=== PATIENT | female | born 1990 | race African-American/Black ===

== ENCOUNTER 2017-02-09 09:34 | Emergency (ER) | payer OTHER ==
[2017-02-09 09:48] VITALS: BP 134/80; PULSE 71; TEMP 98.8; BMI 32.8
--- NOTE | 2017-02-09 12:05 | PDOC ---
History of Present Illness - General History Source: Patient Exam Limitations: No Limitations - History of Present Illness Initial Comments: CHIEF COMPLAINT: 26 y/o afebrile female with PMH asthma c/o SOB since PCP smoking cessation 2 months ago. HISTORY OF PRESENT ILLNESS: The patient states she smoked PCP every day from the time she was 15 until 2 months ago (11 years total). She states since she quit 2 months ago she has had shortness of breath and has not felt like herself. She also admits to yellow vaginal discharge for the past 2 weeks and would like to be tested and treated for STDs. She denies f/c, n/v/d, cough, runny nose, CP, wheezing, abd pain, back pain, hematuria, dysuria, white vaginal discharge, vaginal itching, foul vaginal odor. Vital signs on arrival are within normal limits. REVIEW OF SYSTEMS: GENERAL/CONSTITUTIONAL: No fever/chills. No weakness. No weight change. HEAD, EYES, EARS, NOSE AND THROAT: No change in vision. No ear pain or discharge. No sore throat. CARDIOVASCULAR: +SOB. No chest pain. RESPIRATORY: No cough, wheezing, or hemoptysis. GASTROINTESTINAL: No abd pain, nausea, vomiting, diarrhea. GENITOURINARY: No dysuria, frequency, or change in urination. +yellow vaginal discharge. MUSCULOSKELETAL: No joint or muscle swelling or pain. No neck or back pain. SKIN: No rash or easy bruising. NEUROLOGIC: No headache, vertigo, loss of consciousness, or loss of sensation. PHYSICAL EXAM: GENERAL: The patient is awake, alert, and fully oriented, in no acute distress. She is well appearing and ambulatory. HEAD: Normal with no signs of trauma. ENT: Pupils equal, round and reactive to light, extraocular movements intact, sclera anicteric, conjunctiva clear. Neck supple. LUNGS: Clear to auscultation bilaterally. Normal excursion. No respiratory distress or use of accessory muscles. No wheezing, rhonchi, rales or crackles. CV: RRR, S1/S2, no MRG. Cap refill < 2 sec. ABDOMEN: Soft, non-distended, non-tender even to deep palpation, no hepatomegaly or splenomegaly, no masses. VAGINAL: DEFERRED EXTREMITIES: Normal range of motion, no edema. NEUROLOGICAL: Normal speech, normal gait. CN II-XII grossly intact. PSYCH: Normal mood, normal affect. SKIN: Warm, dry, normal turgor, no rashes or lesions noted. <Kaleigh Rogers - Last Filed: 02/09/17 14:15> <Anitra Bernard - Last Filed: 02/09/17 14:28> - General Chief Complaint: Weakness Stated Complaint: WEAKNESS Time Seen by Provider: 02/09/17 11:42 Past History - Past Medical History Asthma: Yes Psychiatric Problems: Yes (DEPRESSION, ANXIETY) - Reproductive History Spontaneous : 1 - Psycho/Social/Smoking Cessation Hx Anxiety: No Suicidal Ideation: No Smoking Status: Yes Smoking History: Current every day smoker Have you smoked in the past 12 months: Yes Number of Cigarettes Smoked Daily: 10 Cigars Per Day: 0 Information on smoking cessation initiated: No Drug/Substance Use Hx: Yes (PCP 1 MONTH AGO) <Kaleigh Rogers - Last Filed: 02/09/17 14:15> <Anitra Bernard - Last Filed: 02/09/17 14:28> - Past Medical History Allergies/Adverse Reactions: Allergies Allergy/AdvReac Type Severity Reaction Status Date / Time No Known Allergies Allergy Verified 02/09/17 09:43 Home Medications: Ambulatory Orders Escitalopram Oxalate [Lexapro -] 20 mg PO DAILY 02/09/17 *Physical Exam - Vital Signs Last Vital Signs Temp Pulse Resp BP Pulse Ox 98.8 F 71 19 134/80 100 02/09/17 09:44 02/09/17 09:44 02/09/17 09:44 02/09/17 09:44 02/09/17 09:44 <Kaleigh Rogers - Last Filed: 02/09/17 14:15> - Vital Signs Last Vital Signs Temp Pulse Resp BP Pulse Ox 98.8 F 71 19 134/80 100 02/09/17 09:44 02/09/17 09:44 02/09/17 09:44 02/09/17 09:44 02/09/17 09:44 <Anitra Bernard - Last Filed: 02/09/17 14:28> ED Treatment Course - ADDITIONAL ORDERS Additional order review: Laboratory Results 02/09/17 12:12 Urine Color Straw Urine Appearance Clear Urine pH 7.0 Urine Protein Negative Urine Glucose (UA) Negative Urine Ketones Negative Urine Blood Negative Urine Nitrite Negative Urine Bilirubin Negative Urine Urobilinogen Negative Ur Leukocyte Esterase Negative Urine HCG, Qual Negative - Medications Given in the ED: ED Medications Discontinued Medications Generic Name Dose Route Start Last Admin Trade Name Piotr PRN Reason Stop Dose Admin Azithromycin 1 gm 02/09/17 13:12 02/09/17 14:17 Zithromax - PO 02/09/17 13:13 1 gm ONCE ONE Administration Ceftriaxone Sodium 500 mg 02/09/17 13:12 02/09/17 14:17 Rocephin - IM 02/09/17 13:13 500 mg ONCE ONE Administration <Anitra Bernard - Last Filed: 02/09/17 14:28> Medical Decision Making - Medical Decision Making A/P: 26 y/o afebrile female with SOB for the past 2 months since she stopped smoking PCP. She is also c/o vaginal discharge and is concerned for STDs. Plan is as follows: 1. UA/culture/hcg 2. GC/chlamydia 3. CXR 4. PO azithro 5. IM ceftriaxone CXR IMPRESSION: (wet read) No acute pathology. Will treat empirically for GC/Chlamydia. Instructed her to avoid sexual intercourse for 1 week and inform all sexual partners they should be treated. informed her of her CXR results and suggested she f/u with her PCP, Dr. José Miguel Kirby, within 1 week. 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 Instructed her to return to the ER with any worsening or concerning symptoms. The patient verbalizes understanding of all instructions, has no further questions and is awaiting discharge. <Kaleigh Rogers - Last Filed: 02/09/17 14:15> *DC/Admit/Observation/Transfer <Kaleigh Rogers - Last Filed: 02/09/17 14:15> <Anitra Bernard - Last Filed: 02/09/17 14:28> Diagnosis at time of Disposition: Shortness of breath, Concern about STD in female without diagnosis - Discharge Dispostion Disposition: HOME Condition at time of disposition: Good - Referrals Referrals: Callie Finn MD [Primary Care Provider] - - Patient Instructions Printed Discharge Instructions: DI for Shortness of Breath, Facts About Sexually Transmitted Infections Additional Instructions: Discharge Instructions: -You were treated for gonorrhea and chlamydia today with IM Ceftriaxone and PO Azithro. No further treatment is necessary -Please do not have sexual intercourse for 1 week -Inform all sexual partners they should be tested for GC/chlamydia -Return to the ER with any worsening or concerning symptoms
[2017-02-09 13:04] LABS: URINE APPEARANCE CLEAR; URINE BILIRUBIN NEGATIVE (NEGATIVE); URINE BLOOD NEGATIVE (NEGATIVE); URINE COLOR STRAW; URINE GLUCOSE (UA) NEGATIVE (NEGATIVE); URINE KETONE NEGATIVE (NEGATIVE); URINE LEUK ESTERASE NEGATIVE (NEGATIVE); URINE NITRITE NEGATIVE (NEGATIVE); URINE PROTEIN NEGATIVE (NEGATIVE); URINE UROBILINOGEN NEGATIVE E.U./dl (0.2-1.0)
[2017-02-09] MEDS ORDERED: AZITHROMYCIN 1 GM PACKET PO ONE (13:12)
[2017-02-09] MEDS ORDERED: AZITHROMYCIN 250 MG TABLET (FP) ONE (14:10)
[2017-02-09] MEDS ORDERED: cefTRIAXone SODIUM 1 GM VIAL ONE (14:12)
== END 2017-02-09 14:28 | disposition home or self-care (01) ==
LOC: JER 09:34
DX: R06.02 Shortness of breath (principal); F16.10 Hallucinogen abuse, uncomplicated; Z11.3 Encounter for screening for infections with a predominantly sexual mode of transmission; J45.909 Unspecified asthma, uncomplicated
CPT/HCPCS: 36415; 71020-TC; 81003; 84703; 87086; 87491; 87591; 96372; 99282-25

== ENCOUNTER 2021-08-08 09:39 | Inpatient (IN) | payer OTHER ==
[2021-08-08 10:20] VITALS: BMI 32.8
[2021-08-08] MEDS ORDERED: guaiFENesin 200 MG/10 ML 10 ML UNIT-DOSE CUPS PO PRN (10:25)
[2021-08-08] MEDS ORDERED: LOPERAMIDE HCL 2 MG CAPSULE PO PRN (10:25)
[2021-08-08] MEDS ORDERED: MAG HYDROX/AL HYDROX/SIMETH 30 ML UNIT-DOSE CUP PO PRN (10:25)
[2021-08-08] MEDS ORDERED: MAGNESIUM HYDROX 2400MG/30ML ORAL SUSPENSION 30 ML CUP PO PRN (10:25)
[2021-08-08] MEDS ORDERED: ACETAMINOPHEN 325 MG TABLET (FP) PO PRN (10:25)
[2021-08-08] MEDS ORDERED: MAGNESIUM CITRATE 300 ML BOTTLE PO PRN (10:25)
[2021-08-08] MEDS ORDERED: P-EPHED 60MG/TRIPROLIDI 2.5MG TABLET PO PRN (10:25)
[2021-08-08] MEDS ORDERED: IBUPROFEN 400 MG TABLET (FP) PO PRN (10:25)
[2021-08-08] MEDS ORDERED: ALBUTEROL SO4 HFA INHALER IH PRN (10:26)
[2021-08-08] MEDS: NICOTINE 7 MG/24 HOURS TOPICAL PATCH TD SCH (13:23)
[2021-08-08] MEDS: hydrOXYzine PAMOATE 25 MG CAPSULE (FP) PO SCH ×3 (13:24→21:13)
[2021-08-08] MEDS ORDERED: TUBERCULIN PPD 5 TU/0.1ML VIAL ID ONE (13:28)
[2021-08-08] MEDS: PRENATAL VITAMINS W/ FOLIC ACID TABLET (FP) PO SCH (13:30)
[2021-08-08] MEDS: ACAMPROSATE CALCIUM 333 MG TABLET.DR PO SCH ×2 (13:30→21:12)
[2021-08-08 17:13] LABS: BLOOD UREA NITROGEN 7.9 mg/dL (7-18)
[2021-08-08 17:14] LABS: CALCIUM 9.1 mg/dL (8.5-10.1)
[2021-08-08 17:15] LABS: ALBUMIN 3.7 g/dl (3.4-5.0)
[2021-08-08 17:18] LABS: CREATININE 0.8 mg/dL (0.55-1.3)
[2021-08-08 17:19] LABS: BILIRUBIN,TOTAL 0.6 mg/dL (0.2-1); TOT PROT 7.1 g/dl (6.4-8.2)
[2021-08-08 17:22] LABS: MCH 29.1 pg (25.7-33.7); MCHC 32.6 g/dl (32.0-36.0); MEAN CELL VOLUME 89.1 fl (80-96); MEAN PLT VOLUME 8.7 fl (7.5-11.1); PLATELET COUNT 271 10^3/uL (134-434); RBC 5.16 M/mm3 (3.60-5.2); RDW 14.8 % (11.6-15.6); WHITE BLOOD COUNT 13.9 K/mm3 (4.0-10.0)
[2021-08-08 17:37] LABS: SYPHILIS W/ RPR CONF NON-REACTIVE (NONREACTIVE)
[2021-08-08] MEDS: MELATONIN 5 MG TABLETS PO SCH (21:12)
[2021-08-08] MEDS: THIAMINE HCL 100 MG TABLET (FP) PO SCH (21:12)
[2021-08-08] MEDS: NICOTINE 10 MG CARTRIDGE (INHALER) IH PRN (21:14)
[2021-08-09] MEDS ORDERED: PT OWN MED DRAWER 7, Y5N ONE ×2 (06:18→10:27)
[2021-08-09] MEDS: hydrOXYzine PAMOATE 25 MG CAPSULE (FP) PO SCH ×5 (06:19→21:08)
[2021-08-09] MEDS: ACAMPROSATE CALCIUM 333 MG TABLET.DR PO SCH ×3 (06:19→22:27)
[2021-08-09] MEDS ORDERED: BENZOCAINE/MENTHOL 1 EACH LOZENGE MM PRN (09:45)
[2021-08-09] MEDS: NICOTINE 7 MG/24 HOURS TOPICAL PATCH TD SCH (10:19)
[2021-08-09] MEDS: PRENATAL VITAMINS W/ FOLIC ACID TABLET (FP) PO SCH (10:19)
[2021-08-09] MEDS: NICOTINE 10 MG CARTRIDGE (INHALER) IH PRN (10:21)
[2021-08-09] MEDS: THIAMINE HCL 100 MG TABLET (FP) PO SCH (21:08)
[2021-08-09] MEDS: MELATONIN 5 MG TABLETS PO SCH (21:08)
[2021-08-10] MEDS: ACAMPROSATE CALCIUM 333 MG TABLET.DR PO SCH ×3 (06:42→21:53)
[2021-08-10] MEDS: hydrOXYzine PAMOATE 25 MG CAPSULE (FP) PO SCH ×5 (06:42→21:53)
[2021-08-10 10:02] LABS: PH,URINE 7.5 (5.0-8.0); URINE APPEARANCE CLEAR; URINE BILIRUBIN NEGATIVE (NEGATIVE); URINE COLOR YELLOW; URINE GLUCOSE (UA) NEGATIVE (NEGATIVE); URINE KETONE NEGATIVE (NEGATIVE); URINE LEUK ESTERASE NEGATIVE (NEGATIVE); URINE NITRITE NEGATIVE (NEGATIVE); URINE PROTEIN NEGATIVE (NEGATIVE); URINE UROBILINOGEN 0.2 mg/dL (0.2-1.0)
[2021-08-10] MEDS: PRENATAL VITAMINS W/ FOLIC ACID TABLET (FP) PO SCH (10:20)
[2021-08-10] MEDS: NICOTINE 7 MG/24 HOURS TOPICAL PATCH TD SCH (10:20)
[2021-08-10] MEDS ORDERED: PT OWN MED DRAWER 7, Y5N ONE (13:47)
[2021-08-10] MEDS: THIAMINE HCL 100 MG TABLET (FP) PO SCH (21:53)
[2021-08-10] MEDS: MELATONIN 5 MG TABLETS PO SCH (21:53)
[2021-08-11] MEDS: hydrOXYzine PAMOATE 25 MG CAPSULE (FP) PO SCH ×5 (06:44→21:17)
[2021-08-11] MEDS: ACAMPROSATE CALCIUM 333 MG TABLET.DR PO SCH ×3 (06:44→21:17)
[2021-08-11] MEDS: PRENATAL VITAMINS W/ FOLIC ACID TABLET (FP) PO SCH (10:31)
[2021-08-11] MEDS: NICOTINE 7 MG/24 HOURS TOPICAL PATCH TD SCH (10:32)
[2021-08-11] MEDS: MENTHOL/PHENOL 1 EACH UD MM PRN ×2 (13:59→21:18)
[2021-08-11] MEDS: THIAMINE HCL 100 MG TABLET (FP) PO SCH (21:17)
[2021-08-11] MEDS: MELATONIN 5 MG TABLETS PO SCH (21:18)
[2021-08-12] MEDS ORDERED: PT OWN MED DRAWER 7, Y5N ONE ×2 (04:01→13:13)
[2021-08-12] MEDS: MENTHOL/PHENOL 1 EACH UD MM PRN ×2 (06:45→13:22)
[2021-08-12] MEDS: hydrOXYzine PAMOATE 25 MG CAPSULE (FP) PO SCH ×5 (06:45→22:14)
[2021-08-12] MEDS: ACAMPROSATE CALCIUM 333 MG TABLET.DR PO SCH ×3 (06:45→22:14)
[2021-08-12] MEDS: NICOTINE 7 MG/24 HOURS TOPICAL PATCH TD SCH (09:44)
[2021-08-12] MEDS: PRENATAL VITAMINS W/ FOLIC ACID TABLET (FP) PO SCH (09:44)
[2021-08-12] MEDS: NICOTINE 10 MG CARTRIDGE (INHALER) IH PRN (09:45)
[2021-08-12] MEDS: LORATADINE 10 MG TABLET PO SCH (10:42)
[2021-08-12] MEDS: MELATONIN 5 MG TABLETS PO SCH (22:14)
[2021-08-12] MEDS: THIAMINE HCL 100 MG TABLET (FP) PO SCH (22:14)
[2021-08-13] MEDS: ACAMPROSATE CALCIUM 333 MG TABLET.DR PO SCH ×3 (06:27→23:35)
[2021-08-13] MEDS: hydrOXYzine PAMOATE 25 MG CAPSULE (FP) PO SCH ×5 (06:28→23:35)
[2021-08-13] MEDS: LORATADINE 10 MG TABLET PO SCH (10:30)
[2021-08-13] MEDS: PRENATAL VITAMINS W/ FOLIC ACID TABLET (FP) PO SCH (10:30)
[2021-08-13] MEDS: NICOTINE 7 MG/24 HOURS TOPICAL PATCH TD SCH (10:30)
[2021-08-13] MEDS: NICOTINE 10 MG CARTRIDGE (INHALER) IH PRN (10:31)
[2021-08-13] MEDS: traZODone HCL 50 MG TABLET (FP) PO SCH (23:35)
[2021-08-13] MEDS: THIAMINE HCL 100 MG TABLET (FP) PO SCH (23:35)
[2021-08-13] MEDS: MELATONIN 5 MG TABLETS PO SCH (23:35)
[2021-08-14] MEDS: ACAMPROSATE CALCIUM 333 MG TABLET.DR PO SCH ×3 (06:51→22:10)
[2021-08-14] MEDS: hydrOXYzine PAMOATE 25 MG CAPSULE (FP) PO SCH ×5 (06:51→22:10)
[2021-08-14] MEDS: LORATADINE 10 MG TABLET PO SCH (10:29)
[2021-08-14] MEDS: NICOTINE 7 MG/24 HOURS TOPICAL PATCH TD SCH (10:29)
[2021-08-14] MEDS: PRENATAL VITAMINS W/ FOLIC ACID TABLET (FP) PO SCH (10:29)
[2021-08-14] MEDS: NICOTINE 10 MG CARTRIDGE (INHALER) IH PRN (15:32)
[2021-08-14] MEDS: THIAMINE HCL 100 MG TABLET (FP) PO SCH (22:10)
[2021-08-14] MEDS: traZODone HCL 50 MG TABLET (FP) PO SCH (22:10)
[2021-08-14] MEDS: MELATONIN 5 MG TABLETS PO SCH (22:11)
[2021-08-15] MEDS: ACAMPROSATE CALCIUM 333 MG TABLET.DR PO SCH ×3 (06:45→21:58)
[2021-08-15] MEDS: hydrOXYzine PAMOATE 25 MG CAPSULE (FP) PO SCH ×5 (06:45→21:59)
[2021-08-15] MEDS: LORATADINE 10 MG TABLET PO SCH (10:36)
[2021-08-15] MEDS: PRENATAL VITAMINS W/ FOLIC ACID TABLET (FP) PO SCH (10:36)
[2021-08-15] MEDS: NICOTINE 7 MG/24 HOURS TOPICAL PATCH TD SCH (10:37)
[2021-08-15] MEDS: NICOTINE 10 MG CARTRIDGE (INHALER) IH PRN (14:30)
[2021-08-15] MEDS: traZODone HCL 50 MG TABLET (FP) PO SCH (21:58)
[2021-08-15] MEDS: MELATONIN 5 MG TABLETS PO SCH (21:58)
[2021-08-15] MEDS: THIAMINE HCL 100 MG TABLET (FP) PO SCH (21:58)
[2021-08-16] MEDS: hydrOXYzine PAMOATE 25 MG CAPSULE (FP) PO SCH ×5 (06:42→21:22)
[2021-08-16] MEDS: ACAMPROSATE CALCIUM 333 MG TABLET.DR PO SCH ×3 (06:42→21:20)
[2021-08-16] MEDS: LORATADINE 10 MG TABLET PO SCH (10:40)
[2021-08-16] MEDS: NICOTINE 7 MG/24 HOURS TOPICAL PATCH TD SCH (10:40)
[2021-08-16] MEDS: PRENATAL VITAMINS W/ FOLIC ACID TABLET (FP) PO SCH (10:41)
[2021-08-16] MEDS ORDERED: ARIPIPRAZOLE (ABILIFY MAINTENA) 400 MG VIAL IM SCH (16:00)
[2021-08-16] MEDS: traZODone HCL 50 MG TABLET (FP) PO SCH (21:20)
[2021-08-16] MEDS: THIAMINE HCL 100 MG TABLET (FP) PO SCH (21:20)
[2021-08-16] MEDS: MELATONIN 5 MG TABLETS PO SCH (21:22)
[2021-08-17] MEDS: hydrOXYzine PAMOATE 25 MG CAPSULE (FP) PO SCH ×5 (06:55→21:14)
[2021-08-17] MEDS: ACAMPROSATE CALCIUM 333 MG TABLET.DR PO SCH ×3 (06:56→21:13)
[2021-08-17] MEDS: PRENATAL VITAMINS W/ FOLIC ACID TABLET (FP) PO SCH (10:42)
[2021-08-17] MEDS: NICOTINE 7 MG/24 HOURS TOPICAL PATCH TD SCH ×2 (10:42→15:45)
[2021-08-17] MEDS: LORATADINE 10 MG TABLET PO SCH (10:42)
[2021-08-17] MEDS: NICOTINE 10 MG CARTRIDGE (INHALER) IH PRN (14:55)
[2021-08-17] MEDS: traZODone HCL 50 MG TABLET (FP) PO SCH (21:13)
[2021-08-17] MEDS: THIAMINE HCL 100 MG TABLET (FP) PO SCH (21:13)
[2021-08-17] MEDS: MELATONIN 5 MG TABLETS PO SCH (21:13)
[2021-08-18] MEDS ORDERED: PT OWN MED DRAWER 7, Y5N ONE (03:12)
[2021-08-18] MEDS: ACAMPROSATE CALCIUM 333 MG TABLET.DR PO SCH ×3 (06:59→21:51)
[2021-08-18] MEDS: hydrOXYzine PAMOATE 25 MG CAPSULE (FP) PO SCH ×2 (06:59→10:53)
[2021-08-18] MEDS: PRENATAL VITAMINS W/ FOLIC ACID TABLET (FP) PO SCH (10:53)
[2021-08-18] MEDS: LORATADINE 10 MG TABLET PO SCH (10:53)
[2021-08-18] MEDS: NICOTINE 7 MG/24 HOURS TOPICAL PATCH TD SCH (10:54)
[2021-08-18] MEDS ORDERED: hydrOXYzine PAMOATE 25 MG CAPSULE (FP) PO PRN (11:12)
[2021-08-18] MEDS: NICOTINE 10 MG CARTRIDGE (INHALER) IH PRN (14:03)
[2021-08-18] MEDS: traZODone HCL 50 MG TABLET (FP) PO SCH (21:51)
[2021-08-18] MEDS: THIAMINE HCL 100 MG TABLET (FP) PO SCH (21:51)
[2021-08-18] MEDS: MELATONIN 5 MG TABLETS PO SCH (21:52)
[2021-08-19] MEDS: ACAMPROSATE CALCIUM 333 MG TABLET.DR PO SCH ×2 (06:36→15:12)
[2021-08-19 08:05] VITALS: BP 97/66; PULSE 84; TEMP 97.1
[2021-08-19] MEDS: PRENATAL VITAMINS W/ FOLIC ACID TABLET (FP) PO SCH (10:16)
[2021-08-19] MEDS: LORATADINE 10 MG TABLET PO SCH (10:16)
[2021-08-19] MEDS: NICOTINE 7 MG/24 HOURS TOPICAL PATCH TD SCH (10:17)
[2021-08-19] MEDS ORDERED: PT OWN MED DRAWER 7, Y5N ONE (12:26)
== END 2021-08-19 15:36 | disposition home or self-care (01) | DRG 772 ==
LOC: YASAS 09:39 → Y5N 12:15
PROVIDERS: ADMIT Allergy & Immunology; ATTEND Allergy & Immunology
PROC: HZ42ZZZ Group Counseling for Substance Abuse Treatment, Cognitive-Behavioral (ICD-10-PCS; principal; 2021-08-08)
DX: F10.20 Alcohol dependence, uncomplicated (principal); F16.20 Hallucinogen dependence, uncomplicated; F17.210 Nicotine dependence, cigarettes, uncomplicated; F31.9 Bipolar disorder, unspecified; G47.00 Insomnia, unspecified; J45.909 Unspecified asthma, uncomplicated; M54.50 Low back pain, unspecified; G89.29 Other chronic pain; M19.90 Unspecified osteoarthritis, unspecified site; E66.9 Obesity, unspecified; Z68.32 Body mass index [BMI] 32.0-32.9, adult; Z86.73 Personal history of transient ischemic attack (TIA), and cerebral infarction without residual deficits; Z91.51 Personal history of suicidal behavior; Z91.018 Allergy to other foods
CPT/HCPCS: 36415; 80053; 81003; 85027; 86780; 86803; 87811; C9803; T1023; U0003; U0005